=== PATIENT | female | born 1955 | race Caucasian/White ===

== ENCOUNTER 2025-07-02 06:37 | Day surgery (SDC) | payer MEDICARE, BC, MEDICAID ==
[2025-07-02] VITALS (11 sets, daily range): BP systolic 95–122; BP diastolic 49–66; PULSE 65–80; RESP 10–15; TEMP 97.9; O2SAT 93–98
[~2025-07-02] VITALS: Ht 160 cm; Wt 75.5 kg
[~2025-07-02 06:37] MED LIST: DOCU50CA3 PO; HYDR-4353 PO; ONDA8TAB9 PO; TOP100T PO; VENL75CA55 PO
--- NOTE | 2025-07-02 07:13 | ELECTROCARDIOGRAPH REPORT ---
[facility] Test Date: 2025-07-02 Test Time: 07:10:18 Pat Name: KLEVER JULES Department: [facility] Patient ID: [id number] Room: Gender: F Surgical First Assistant: MANUELITO : 1955 Requested By: VANDA HANNA Order Number: [id number] Reading MD: Dr. Andrew Napier Measurements Intervals [place] Rate: 83 P: -84 OR: 82 QRS: 73 QRSD: 97 T: 66 QT: 386 QTc: 454 Interpretive Statements Ectopic atrial rhythm Short OR interval Abnormal R-wave progression, early transition Borderline T wave abnormalities Electronically Signed On 07-05-2025 7:07:[address] Andrew Napier Please click the below link to view image of tracing.
[2025-07-02] MEDS ORDERED: NITR0.4T51 SL (07:23)
[2025-07-02] MEDS ORDERED: TRAM50TA2 PO (07:23)
[2025-07-02] MEDS ORDERED: RIZA10TA28 PO (07:23)
[2025-07-02] MEDS ORDERED: BACL10TA2 PO (07:23)
[2025-07-02] MEDS ORDERED: ASPI81TA52 PO (07:26)
[2025-07-02] MEDS ORDERED: CYAN250010 PO (07:27)
[2025-07-02 07:51] LABS: MEAN PLATELET VOLUME 7.6 FL (7.4-10.4); RED CELL DISTRIBUTION WIDTH 13.6 % (11.5-14.5)
[2025-07-02 08:01] LABS: CREATININE 1.01 MG/DL (0.40-0.90); TOTAL CARBON DIOXIDE 21.9 MMOL/L (24-32); eCRCL 43 ML/MIN; eGFR 54 ML/MIN
[2025-07-02 08:02] LABS: INR 1.0 INR
[2025-07-02] MEDS: sodium bicarbonate 1meq/ml syr 150 ML in dextrose 5%-water 1,000 ML IV ONE (08:25)
[2025-07-02] MEDS ORDERED: midazolam 1 mg/ML 2ml injection ONE ×2 (08:59→09:36)
[2025-07-02] MEDS ORDERED: heparin 1,000unit/ml 10ml vial 10 ML ONE (08:59)
[2025-07-02] MEDS ORDERED: verapamil 2.5 mg/ml inj IV ONE (08:59)
[2025-07-02] MEDS ORDERED: iohexol 350 MG/ML 50ML vial IV ONE (08:59)
[2025-07-02] MEDS ORDERED: fentaNYL/PF 50MCG/1 ML 2ML syringe ONE (08:59)
[2025-07-02] MEDS ORDERED: LIDOcaine 1% (10mg/ml) 2ml vial ONE (08:59)
[2025-07-02] MEDS ORDERED: nitroGLYCERIN 500mcg/5mL D5W 5 ML IV ONE (09:04)
--- NOTE | 2025-07-02 11:20 | CARDIOLOGY REPORT ---
DATE OF SERVICE: 07/02/2025 DICTATING PHYSICIAN: VANDA HANNA DO CARDIAC CATHETERIZATION REPORT DATE OF SERVICE: 07/02/2025 REFERRING PHYSICIAN: Leandro Angelo MD. CLINICAL HISTORY: This 70-year-old woman has recurring episodes of chest pain compatible with angina pectoris. She has an abnormal stress test manifested as a reversible apical defect. PROCEDURES PERFORMED: * Left heart catheterization. * Left ventriculography. * Selective coronary arteriography. * 30 minutes of conscious sedation supervision. DESCRIPTION OF PROCEDURE: The patient was sedated with fentanyl and Versed. She was then prepared and draped in the usual manner. The right radial artery area infiltrated with 1% lidocaine using a micropuncture set. Under Seldinger technique, a 6-English sheath was placed in the radial artery. 200 mcg of nitroglycerin and 2.5 mg of verapamil were directly injected into the radial artery. 5000 units of heparin were given in a peripheral IV. Left heart catheterization and left ventriculography were performed using a 6-English pigtail catheter. Coronary arteriography was performed using a 6-English Kimny catheter. The arterial sheath was removed and a Vasc band was applied. RESULTS: HEMODYNAMIC DATA: The left ventricular end diastolic pressure was 6 mmHg. There was no gradient across the aortic valve. LEFT VENTRICULOGRAM: The left ventriculogram was technically satisfactory. The LVEF was approximately 65%. CORONARY ARTERIOGRAPHY: The coronary arteriograms were technically satisfactory. The patient had a right dominant system. LEFT MAIN CORONARY ARTERY: The left main was a large, short, unobstructed vessel immediately bifurcating into left anterior descending and circumflex coronary arteries. LEFT ANTERIOR DESCENDING CORONARY ARTERY: The LAD was a large vessel with a transapical distribution. There was a small proximal first diagonal and a large second diagonal, the first taking its origin proximally and the second in the mid segment. The origin of the small first diagonal was narrowed by about 90%, but it was a tiny vessel, i.e., well below 2 mm in diameter. There were no other obstructive lesions in the left anterior descending coronary artery. CIRCUMFLEX CORONARY ARTERY: The circumflex was a large main stem vessel. There was a very large first obtuse marginal and no other more distal branches. There were no obstructive lesions in the circumflex coronary artery. RIGHT CORONARY ARTERY: The right coronary artery was a large main stem vessel. There was a small posterior descending branch and three small posterolateral branches. The first two were very small. The second was medium in size. There were no obstructive lesions in the right coronary artery. CONCLUSIONS: 1. No evidence for important coronary artery disease. There is a 90% narrowing at the origin of a tiny first diagonal branch, which is far too small for any consideration of percutaneous coronary intervention. Otherwise, there is nothing else. 2. Left ventricular systolic function was normal. The estimated left ventricular ejection fraction was about 65%. RECOMMENDATIONS: Ongoing medical therapy. VANDA HANNA DO TID: [id number] RECEIPT: [id number] FRANTZ/SIR BASIM
== END 2025-07-02 14:30 | disposition home or self-care (01) ==
LOC: SSTAY O 06:37
PROVIDERS: ATTEND Internal Medicine Cardiovascular Disease
DX: R07.9 Chest pain, unspecified (principal); I25.10 Atherosclerotic heart disease of native coronary artery without angina pectoris; E78.5 Hyperlipidemia, unspecified; I48.0 Paroxysmal atrial fibrillation
CPT/HCPCS: 36415; 80048; 83735; 85025; 85610; 93005; 93458; 99152; 99153; A6258; A6402; C1894; J1171; J1644; J2003; J2250; J3010; J3490; J7030; J7070; Q0163; Q9967; Z7610; A6449